=== PATIENT | male | born 1960 | race Caucasian/White ===

== ENCOUNTER 2020-08-10 10:45 | Emergency (ER) | payer BC ==
[~2020-08-10] VITALS: Ht 172.7 cm; Wt 88.6 kg
[~2020-08-10 10:45] MED LIST: CIPRO500 MG PO; DEPO-MEDROL80 MG/ML IM; DIOVAN160 MG; DIOVAN160 MG PO; DIOVAN80 MG PO; FLEXERIL OR; FLEXERIL5 M1 PO; HYDROCHLORO25 MG/TAB PO; LISINOPRIL10 MG PO; MECLIZINE25 MG OR; NAPROSYN500 MG PO; ROBITUSSIN AC10 ML PO; ULTRAM50 M1 PO; ZITHROMAX250 MG PO; [UNRECOGNIZED DRUG - REMARK]
[2020-08-10 11:46] LABS: HEMATOCRIT 44.6 % (39.0-50.0); HEMOGLOBIN 14.3 g/dl (14.0-18.0); IMMATURE GRANULOCYTES 0.3 % (0.0-5.0); MEAN CELL VOLUME 91.2 fL CALC (80.0-100.0); MEAN CORPUSCULAR HGB 29.2 pG CALC (26.0-32.0); MEAN CORPUSCULAR HGB CONC 32.1 g/dL CAL (32.0-36.0); NEUT# 7.34 thou/uL (1.82-7.42); RED BLOOD COUNT 4.89 mill/uL (4.70-6.10); RED CELL DISTRI WIDTH 12.9 % (11.5-15.5)
[2020-08-10 12:05] LABS: ALBUMIN 4.1 g/dL (3.2-5.0); ALKALINE PHOSPHATASE 72 u/l (38-126); ANION GAP 12 (6-22 (CALC)); BILIRUBIN, TOTAL 0.6 mg/dL (0.0-1.4); BUN 20 mg/dL (9-20); BUN/CREATININE RATIO 19 (12-20 (CALC)); CARBON DIOXIDE 26 mmol/l (22-30); CHLORIDE 103 mmol/l (95-108); CREATININE 1.1 mg/dL (0.7-1.3); GFR > 60 ML/MIN (>=60 (CALC)); GFR FOR AFR.AMER. > 60 ML/MIN (>=60 (CALC)); LIPASE 71 u/l (23-300); POTASSIUM 4.3 mmol/l (3.5-5.1); SGOT/AST 25 u/l (17-59); SODIUM 137 mmol/l (137-146); TOTAL PROTEIN 7.2 g/dL (6.3-8.2)
[2020-08-10 14:06] VITALS: BP 151/68
== END 2020-08-10 14:13 | disposition home or self-care (01) | DRG 948 ==
LOC: ED 10:45
PROVIDERS: Family Medicine
DX: R53.83 Other fatigue (principal); I10 Essential (primary) hypertension; F17.200 Nicotine dependence, unspecified, uncomplicated; Z86.16 Personal history of COVID-19; Z20.822 Contact with and (suspected) exposure to COVID-19

== ENCOUNTER 2021-07-19 18:47 | Emergency (ER) | payer BC ==
[~2021-07-19] VITALS: Ht 172.7 cm; Wt 95.0 kg
[2021-07-19] MEDS ORDERED: LOSARTAN POTASS50 MG PO (19:12)
[2021-07-19 19:47] LABS: HEMATOCRIT 46.5 % (39.0-50.0); HEMOGLOBIN 15.2 g/dl (14.0-18.0); IMMATURE GRANULOCYTES 0.5 % (0.0-5.0); MEAN CELL VOLUME 90.3 fL CALC (80.0-100.0); MEAN CORPUSCULAR HGB 29.5 pG CALC (26.0-32.0); MEAN CORPUSCULAR HGB CONC 32.7 g/dL CAL (32.0-36.0); NEUT# 3.56 thou/uL (1.82-7.42); RED BLOOD COUNT 5.15 mill/uL (4.70-6.10); RED CELL DISTRI WIDTH 12.3 % (11.5-15.5)
[2021-07-19 20:09] LABS: ALBUMIN 4.1 g/dL (3.2-5.0); ALKALINE PHOSPHATASE 70 u/l (38-126); BILIRUBIN, TOTAL 0.4 mg/dL (0.0-1.4); BUN 22 mg/dL (8-23); BUN/CREATININE RATIO 20 (12-20 (CALC)); CARBON DIOXIDE 26 mmol/l (22-30); CREATININE 1.1 mg/dL (0.7-1.3); GFR > 60 ML/MIN (>=60 (CALC)); GFR FOR AFR.AMER. > 60 ML/MIN (>=60 (CALC)); LIPASE 75 u/l (23-300); SGOT/AST 27 u/l (19-48); TOTAL PROTEIN 7.6 g/dL (6.3-8.2)
[2021-07-19 20:11] LABS: ACT PARTIAL THROMBO TIME 25.3 SECONDS (20.0-32.5); CHLORIDE 95 mmol/l (95-108); INTERNATIONAL NORMALIZED RATIO 0.9 RATIO (0.7-1.3); PROTHROMBIN TIME 9.9 SECONDS (9.0-12.5)
[2021-07-19 20:22] LABS: ANION GAP 22 (6-22 (CALC)); SODIUM 139 mmol/l (137-146)
[2021-07-19] MEDS ORDERED: VENTOLIN HFA IN (20:38)
[2021-07-19] MEDS ORDERED: MEDDOSEPAK PO (20:38)
[2021-07-19] MEDS ORDERED: ZPAK PO (20:38)
[2021-07-19] MEDS ORDERED: TESSALON PERLE100 MG PO (20:38)
[2021-07-19 21:05] VITALS: BP 155/84
== END 2021-07-19 21:05 | disposition home or self-care (01) | DRG 179 ==
LOC: ED 18:47
DX: U07.1 COVID-19 (principal); J40 Bronchitis, not specified as acute or chronic; I10 Essential (primary) hypertension; Z86.16 Personal history of COVID-19

== ENCOUNTER 2024-08-02 14:52 | Emergency (ER) | payer BC ==
[2024-08-02] VITALS (25 sets, daily range): BP systolic 102–153; BP diastolic 65–93
[~2024-08-02] VITALS: Ht 172.7 cm; Wt 87.0 kg
[~2024-08-02 14:52] MED LIST changes: +LOSARTAN POTASS50 MG PO; +MEDDOSEPAK PO; +TESSALON PERLE100 MG PO; +VENTOLIN HFA IN; +ZPAK PO
[2024-08-02] MEDS ORDERED: ALBUTEROL SULFATE 2.5 MG VIAL IN ONE (15:15)
[2024-08-02 15:29] LABS: BASO% 0.1 % (0-3); HEMATOCRIT 50.2 % (39.0-50.0); HEMOGLOBIN 16.2 g/dl (14.0-18.0); IMMATURE GRANULOCYTES 0.6 % (0.0-5.0); LYMPH% 6.8 % (15-41); MEAN CELL VOLUME 91.8 fL CALC (80.0-100.0); MEAN CORPUSCULAR HGB 29.6 pG CALC (26.0-32.0); MEAN CORPUSCULAR HGB CONC 32.3 g/dL CAL (32.0-36.0); MONO% 8.5 % (2-13); NEUT# 12.92 thou/uL (1.82-7.42); RED BLOOD COUNT 5.47 mill/uL (4.70-6.10); RED CELL DISTRI WIDTH 12.7 % (11.5-15.5)
[2024-08-02 15:43] LABS: ALBUMIN 3.8 g/dL (3.2-5.0); ALKALINE PHOSPHATASE 75 u/l (38-126); ANION GAP 14 (6-22 (CALC)); BILIRUBIN, TOTAL 0.6 mg/dL (0.2-1.3); BUN 19 mg/dL (8-23); BUN/CREATININE RATIO 17 (12-20 (CALC)); CARBON DIOXIDE 27 mmol/l (22-30); CHLORIDE 102 mmol/l (95-108); CREATININE 1.1 mg/dL (0.7-1.3); ESTIMATED GFR 75 ML/MIN (>=90 (CALC)); LIPASE 48 u/l (23-300); SGOT/AST 27 u/l (19-48); SODIUM 138 mmol/l (137-146); TOTAL PROTEIN 6.9 g/dL (6.3-8.2)
[2024-08-02] MEDS ORDERED: SODIUM CHLORIDE 0.45% 1,000 ML IV ONE (17:05)
[2024-08-02] MEDS ORDERED: ENOXAPARIN SODIUM 100 MG/ML SYR SC ONE (17:05)
[2024-08-02] MEDS ORDERED: DOXYCYCLINE HYCLATE 100 MG in SODIUM CHLORIDE 0.9% 100 ML IV ONE (17:05)
[2024-08-02 17:48] LABS: URINE BLOOD DIPSTICK Negative (NEGATIVE); URINE CLARITY Clear; URINE COLOR Yellow; URINE GLUCOSE - DIPSTICK Negative (NEGATIVE); URINE KETONE 40 mg/dL (NEGATIVE); URINE LEUK ESTERASE Negative (Negative); URINE NITRITE - DIPSTICK Negative (Negative); URINE PH 5.5 (4.5-8.0); URINE PROTEIN - DIPSTICK 30 mg/dL (NEG-TRACE); URINE UROBILINOGEN - DIPSTICK 0.2 E.U./dL (0.2)
[2024-08-02 17:54] LABS: URINE MUCUS MODERATE hpf (NONE-FEW); URINE RBC 0-2 RBC/hpf (0-5); URINE WBC 0-2 WBC/hpf (0-5)
[2024-08-02] MEDS ORDERED: ACETAMINOPHEN 500 MG TAB PO ONE (18:00)
== END 2024-08-02 21:48 | disposition short-term general hospital (02) | DRG 193 ==
LOC: ED 14:52
PROVIDERS: Emergency Medicine
DX: J18.9 Pneumonia, unspecified organism (principal); J96.91 Respiratory failure, unspecified with hypoxia; I10 Essential (primary) hypertension; Z85.51 Personal history of malignant neoplasm of bladder; Z85.819 Personal history of malignant neoplasm of unspecified site of lip, oral cavity, and pharynx; Z91.041 Radiographic dye allergy status
CPT/HCPCS: J0696; J1650